=== PATIENT | female | born 1970 | race Caucasian/White ===

== ENCOUNTER 2021-06-23 16:33 | Emergency (ER) | payer MEDICARE ==
[2021-06-23] MEDS: Aspirin 81 MG Tab.Chew PO ONE (17:18)
== END 2021-06-23 17:56 | disposition home or self-care (01) ==
LOC: FB.ED 16:33
DX: R55 Syncope and collapse (principal)
CPT/HCPCS: 36415; 80053; 83735; 84484; 84550; 85027; 93005; 93010; 99282; 99284-25; A9270-GY